=== PATIENT | female | born 1980 | race Caucasian/White ===

== ENCOUNTER 2023-05-29 15:57 | Outpatient (OUT) | payer MEDICAID, SELFPAY ==
--- NOTE | 2023-05-29 15:58 | US_ITS ---
[address] [address] Patient Name: WILLIAM DONOHUE MRN: [facility]:[id number] date: 1980 Sex: F Assigned Patient Location: [facility] Current Patient Location: Accession/Order Number: [id number] Exam Date: 05/29/2023 15:59 Report Date: 05/31/2023 07:43 At the request of: FUNMILAYO VERGARA Procedure: US OB BPP w non-stress PROCEDURE: US OB growth, US OB transvaginal, US OB BPP w non-stress, 05/29/2023 3:59 PM EDT. INDICATIONS: Encounter for third trimester , growth evaluation. Size, date discrepancy. 6 para 5. COMPARISON: None. FINDINGS: EVALUATION Number of Fetuses : 1. Presentation: Cephalic. Heart Rate: 129 bpm. Placenta: Not evaluated. JELLY: 11.5 cm, 5-95th percentile, maximal vertical pocket 4.2 cm. CERVIX LENGTH: 3.3 cm by transvaginal assessment, closed. GESTATIONAL AGE: Provided gestational age: 33 weeks 3 days. Provided HODA: 07/14/2023. Sonographic gestational age: 32 weeks 5 days +/- 2 weeks 2 days. Sonographic HODA: 07/19/2023. BIOMETRY: BPD: 8.5 cm, 34 weeks 2 days, 70 percentile. HC: 30.8 cm, 34 weeks 3 days, 37 percentile. AC: 26.9 cm, 31 weeks 0 days, less than 3 percentile. FL: 6.0 cm, 31 weeks 2 days, 4 percentile. Estimated weight 1813 g +/- 272 g. 6 percentile. Growth ratios: CI: 79.1. FL/BPD: 70.9, normal range 71-87. HC/AC: 1.15, normal range 0.96-1.12. FL/AC: 22.4. FL/HC: 19.5, normal range 19.7-21.4. ANATOMY: Not evaluated. BIOPHYSICAL PROFILE ASSESSMENT: movement: 2/2. tone: 2/2. breathin/2. fluid: 2/2. Total biophysical profile score: 8/8. MATERNAL FINDINGS: No maternal adnexal abnormality. IMPRESSION: 1. Living intrauterine , cephalic presentation. 2. Composite sonographic age 32 weeks 5 days +/- 2 weeks 2 days. 3. Estimated weight 1813 g, 6 percentile, mild asymmetric small for gestational age fetus is favored. Abdominal circumference is less than 3rd percentile, femur length 4 percentile. 4. Normal biophysical profile assessment, total score 8/8. Electronically authenticated by: LAMONT ISLAS Date: 05/31/2023 07:43
--- NOTE | 2023-05-29 15:59 | US_ITS ---
[address] [address] Patient Name: WILLIAM DONOHUE MRN: [facility]:[id number] date: 1980 Sex: F Assigned Patient Location: [facility] Current Patient Location: Accession/Order Number: [id number] Exam Date: 05/29/2023 15:59 Report Date: 05/31/2023 07:43 At the request of: FUNMILAYO VERGARA Procedure: US OB transvaginal PROCEDURE: US OB growth, US OB transvaginal, US OB BPP w non-stress, 05/29/2023 3:59 PM EDT. INDICATIONS: Encounter for third trimester , growth evaluation. Size, date discrepancy. 6 para 5. COMPARISON: None. FINDINGS: EVALUATION Number of Fetuses : 1. Presentation: Cephalic. Heart Rate: 129 bpm. Placenta: Not evaluated. JELLY: 11.5 cm, 5-95th percentile, maximal vertical pocket 4.2 cm. CERVIX LENGTH: 3.3 cm by transvaginal assessment, closed. GESTATIONAL AGE: Provided gestational age: 33 weeks 3 days. Provided HODA: 07/14/2023. Sonographic gestational age: 32 weeks 5 days +/- 2 weeks 2 days. Sonographic HODA: 07/19/2023. BIOMETRY: BPD: 8.5 cm, 34 weeks 2 days, 70 percentile. HC: 30.8 cm, 34 weeks 3 days, 37 percentile. AC: 26.9 cm, 31 weeks 0 days, less than 3 percentile. FL: 6.0 cm, 31 weeks 2 days, 4 percentile. Estimated weight 1813 g +/- 272 g. 6 percentile. Growth ratios: CI: 79.1. FL/BPD: 70.9, normal range 71-87. HC/AC: 1.15, normal range 0.96-1.12. FL/AC: 22.4. FL/HC: 19.5, normal range 19.7-21.4. ANATOMY: Not evaluated. BIOPHYSICAL PROFILE ASSESSMENT: movement: 2/2. tone: 2/2. breathin/2. fluid: 2/2. Total biophysical profile score: 8/8. MATERNAL FINDINGS: No maternal adnexal abnormality. IMPRESSION: 1. Living intrauterine , cephalic presentation. 2. Composite sonographic age 32 weeks 5 days +/- 2 weeks 2 days. 3. Estimated weight 1813 g, 6 percentile, mild asymmetric small for gestational age fetus is favored. Abdominal circumference is less than 3rd percentile, femur length 4 percentile. 4. Normal biophysical profile assessment, total score 8/8. Electronically authenticated by: LAMONT ISLAS Date: 05/31/2023 07:43
--- NOTE | 2023-05-29 15:59 | US_ITS ---
[address] [address] Patient Name: WILLIAM DONOHUE MRN: [facility]:[id number] date: 1980 Sex: F Assigned Patient Location: [facility] Current Patient Location: Accession/Order Number: [id number] Exam Date: 05/29/2023 15:59 Report Date: 05/31/2023 07:43 At the request of: FUNMILAYO VERGARA Procedure: US OB growth PROCEDURE: US OB growth, US OB transvaginal, US OB BPP w non-stress, 05/29/2023 3:59 PM EDT. INDICATIONS: Encounter for third trimester , growth evaluation. Size, date discrepancy. 6 para 5. COMPARISON: None. FINDINGS: EVALUATION Number of Fetuses : 1. Presentation: Cephalic. Heart Rate: 129 bpm. Placenta: Not evaluated. JELLY: 11.5 cm, 5-95th percentile, maximal vertical pocket 4.2 cm. CERVIX LENGTH: 3.3 cm by transvaginal assessment, closed. GESTATIONAL AGE: Provided gestational age: 33 weeks 3 days. Provided HODA: 07/14/2023. Sonographic gestational age: 32 weeks 5 days +/- 2 weeks 2 days. Sonographic HODA: 07/19/2023. BIOMETRY: BPD: 8.5 cm, 34 weeks 2 days, 70 percentile. HC: 30.8 cm, 34 weeks 3 days, 37 percentile. AC: 26.9 cm, 31 weeks 0 days, less than 3 percentile. FL: 6.0 cm, 31 weeks 2 days, 4 percentile. Estimated weight 1813 g +/- 272 g. 6 percentile. Growth ratios: CI: 79.1. FL/BPD: 70.9, normal range 71-87. HC/AC: 1.15, normal range 0.96-1.12. FL/AC: 22.4. FL/HC: 19.5, normal range 19.7-21.4. ANATOMY: Not evaluated. BIOPHYSICAL PROFILE ASSESSMENT: movement: 2/2. tone: 2/2. breathin/2. fluid: 2/2. Total biophysical profile score: 8/8. MATERNAL FINDINGS: No maternal adnexal abnormality. IMPRESSION: 1. Living intrauterine , cephalic presentation. 2. Composite sonographic age 32 weeks 5 days +/- 2 weeks 2 days. 3. Estimated weight 1813 g, 6 percentile, mild asymmetric small for gestational age fetus is favored. Abdominal circumference is less than 3rd percentile, femur length 4 percentile. 4. Normal biophysical profile assessment, total score 8/8. Electronically authenticated by: LAMONT ISLAS Date: 05/31/2023 07:43
[2023-05-29 16:32] VITALS: BP 151/83; PULSE 76
[2023-05-29 16:42] VITALS: BP 115/73; PULSE 73
== END 2023-05-29 16:55 | disposition home or self-care (01) ==
LOC: US 15:57 → FBC 16:04
PROVIDERS: PCP Family Medicine; Visit Provider Obstetrics & Gynecology
DX: O26.843 Uterine size-date discrepancy, third trimester (principal); O09.213 Supervision of pregnancy with history of pre-term labor, third trimester
CPT/HCPCS: 59025; 76816; 76817; 76818

== ENCOUNTER 2023-06-03 15:54 | Outpatient (OUT) | payer MEDICAID, SELFPAY ==
--- NOTE | 2023-06-03 16:00 | US_ITS ---
[address] [address] Patient Name: WILLIAM DONOHUE MRN: [facility]:[id number] date: 1980 Sex: F Assigned Patient Location: [facility] Current Patient Location: [facility] Accession/Order Number: [id number] Exam Date: 06/03/2023 16:01 Report Date: 06/03/2023 16:29 At the request of: FUNMILAYO VERGARA Procedure: US OB BPP w non-stress EXAMINATION: US OB BPP w non-stress HISTORY: THIRD TRIMESTER Z34.93 COMPARISON: Ultrasound biophysical 05/29/2023 TECHNIQUE: Ultrasound biophysical profile was performed in the radiology department. BREATHING MOVEMENTS: 2.0 GROSS BODY MOVEMENTS: 2.0 TONE: 2.0 QUALITATIVE AMNIOTIC FLUID VOLUME: 2.0 PRESENTATION: CEPHALIC HEART RATE: 136.4 bpm bpm. AMNIOTIC FLUID VOLUME: 11.3 cm GESTATIONAL AGE: 34 weeks 1 days CONCLUSION: Total biophysical profile score 8.0. Electronically authenticated by: AGUILAR STEWARD Date: 06/03/2023 16:29
[2023-06-03 16:14] VITALS: BP 117/70; PULSE 65
== END 2023-06-03 16:34 | disposition home or self-care (01) ==
LOC: US 15:55 → FBC 15:57
PROVIDERS: PCP Family Medicine; Visit Provider Obstetrics & Gynecology
DX: O26.843 Uterine size-date discrepancy, third trimester (principal); Z3A.34 34 weeks gestation of pregnancy
CPT/HCPCS: 76818

== ENCOUNTER 2023-06-10 16:08 | Outpatient (OUT) | payer MEDICAID, SELFPAY ==
--- NOTE | 2023-06-10 16:08 | US_ITS ---
[address] [address] Patient Name: WILLIAM DONOHUE MRN: [facility]:[id number] date: 1980 Sex: F Assigned Patient Location: US Current Patient Location: Accession/Order Number: [id number] Exam Date: 06/10/2023 16:10 Report Date: 06/10/2023 18:01 At the request of: FUNMILAYO VERGARA Procedure: US OB BPP w non-stress EXAMINATION: US OB BPP w non-stress HISTORY: Z34.93 THIRD TRIMESTER COMPARISON: No relevant comparison available. TECHNIQUE: Ultrasound biophysical profile was performed in the radiology department. non-reactive stress testing was performed by nursing staff in the birthing center. FINDINGS: BREATHING MOVEMENTS: 2.0 GROSS BODY MOVEMENTS: 2.0 TONE: 2.0 QUALITATIVE AMNIOTIC FLUID VOLUME: 2.0 PRESENTATION: CEPHALIC HEART RATE: 126.8 bpm H.B./min AMNIOTIC FLUID VOLUME: 8.7 cm cm GESTATIONAL AGE: 35 weeks 1 days CONCLUSION: Total biophysical profile score: 8.0 Electronically authenticated by: MIRIAN YIP Date: 06/10/2023 18:01
[2023-06-10 16:48] VITALS: BP 115/73; PULSE 72
== END 2023-06-10 17:12 | disposition home or self-care (01) ==
LOC: US 16:08 → FBC 16:10
PROVIDERS: PCP Family Medicine; Visit Provider Obstetrics & Gynecology
DX: O26.843 Uterine size-date discrepancy, third trimester (principal); Z3A.35 35 weeks gestation of pregnancy
CPT/HCPCS: 76818

== ENCOUNTER 2023-06-13 20:09 | Outpatient (OUT) | payer MEDICAID, SELFPAY ==
[2023-06-13 20:32] VITALS: BP 111/77; PULSE 87; RESP 16; TEMP 36.3
== END 2023-06-13 21:00 | disposition home or self-care (01) ==
LOC: FBCO 20:10 → FBC 20:11
PROVIDERS: PCP Family Medicine; Visit Provider Obstetrics & Gynecology
DX: O26.843 Uterine size-date discrepancy, third trimester (principal)
CPT/HCPCS: 59025

== ENCOUNTER 2023-06-17 18:33 | Outpatient (REF) | payer MEDICAID, SELFPAY | END 2023-06-17 18:34 | disposition home or self-care (01) | LOC: LAB 18:33 | PROVIDERS: PCP Family Medicine; Visit Provider Obstetrics & Gynecology | DX: Z34.93 Encounter for supervision of normal pregnancy, unspecified, third trimester (principal) | CPT/HCPCS: 87081 ==

== ENCOUNTER 2023-06-24 16:50 | Outpatient (OUT) | payer MEDICAID, SELFPAY ==
--- NOTE | 2023-06-24 16:52 | US_ITS ---
[address] [address] Patient Name: WILLIAM DONOHUE MRN: [facility]:[id number] date: 1980 Sex: F Assigned Patient Location: US Current Patient Location: LAB Accession/Order Number: [id number] Exam Date: 06/24/2023 16:55 Report Date: 06/25/2023 18:37 At the request of: FUNMILAYO VERGARA Procedure: US OB BPP w non-stress EXAMINATION: US OB BPP w non-stress HISTORY: SIZE OF FETUS INCONSISTENT WITH DATES O26.843 COMPARISON: Ultrasound OB biophysical 06/10/2023 TECHNIQUE: Ultrasound biophysical profile was performed in the radiology department. BREATHING MOVEMENTS: 2.0 GROSS BODY MOVEMENTS: 2.0 TONE: 2.0 QUALITATIVE AMNIOTIC FLUID VOLUME: 2.0 PRESENTATION: CEPHALIC HEART RATE: 139.9 bpm bpm. AMNIOTIC FLUID VOLUME: 9.3 cm GESTATIONAL AGE: 37 weeks 1 days CONCLUSION: Total biophysical profile score 8.0. Electronically authenticated by: AGUILAR STEWARD Date: 06/25/2023 18:37
--- NOTE | 2023-06-24 16:52 | US_ITS ---
[address] [address] Patient Name: WILLIAM DONOHUE MRN: [facility]:[id number] date: 1980 Sex: F Assigned Patient Location: US Current Patient Location: Accession/Order Number: [id number] Exam Date: 06/24/2023 16:55 Report Date: 06/25/2023 18:40 At the request of: FUNMILAYO VERGARA Procedure: US OB growth EXAMINATION: US OB growth HISTORY: THIRD TRIMESTER Z34.93 ; size inconsistent with dates COMPARISON: Ultrasound OB growth 05/29/2023 FINDINGS: Heart Rate: 139.9 bpm Number: 1.0 Position: CEPHALIC Amniotic Fluid Volume: 9.3 cm Maximum Vertical Pocket: 3.3 cm BIOMETRY: BPD: 8.9 cm cm; 36 weeks 0 days; 33% HC: 32.8 cmcm; 37 weeks 1 days; 26% AC: 31.0 cm cm; 35 weeks 0 days; 10% FL: 6.6 cm cm; 34 weeks 0 days; <3% EFW: 2573.9 grams; 11% FL/AC: 21.3 FL/BPD: 74.3 HC/AC: 1.1 GESTATIONAL AGE: Age by EDC: 37 weeks 1 days HODA by EDC: 07/14/2023 Age by US: 35 weeks 4 days HODA by US: 07/25/2023 US/US OB growth IMPRESSION: 1. Single live intrauterine with growth detailed above. 2. Estimated weight is at 11th percentile; femur length is less than 3rd percentile. Electronically authenticated by: AGUILAR STEWARD Date: 06/25/2023 18:40
[2023-06-24 17:31] VITALS: BP 110/75; PULSE 72
== END 2023-06-24 17:54 | disposition home or self-care (01) ==
LOC: US 16:51 → FBC 17:15
PROVIDERS: PCP Family Medicine; Visit Provider Obstetrics & Gynecology
DX: O26.843 Uterine size-date discrepancy, third trimester (principal); Z3A.35 35 weeks gestation of pregnancy
CPT/HCPCS: 76816; 76818

== ENCOUNTER 2023-07-02 13:15 | Inpatient (IN) | payer MEDICAID, SELFPAY ==
[2023-07-02] VITALS (35 sets, daily range): BP systolic 91–156; BP diastolic 50–90; PULSE 56–126; RESP 16–20; TEMP 36.3–37.1
[2023-07-02 14:10] LABS: Hematocrit 33.6 % (36.0-48.0); Hemoglobin 11.3 g/dL (12.0-16.0); Mean Corpuscular HGB Conc 33.6 g/dL (29.9-35.2); Mean Corpuscular Hemoglobin 30.9 pg (26.7-34.0); Mean Corpuscular Volume 91.8 fL (81.0-99.0); Mean Platelet Volume 12.1 fL (9.5-13.5); Platelet Count 127 10^3/uL (150-450); Red Blood Count 3.66 10^6/uL (4.20-5.40); Red Cell Distribution Width 11.9 % (11.0-15.0)
[2023-07-02 14:22] LABS: Amphetamine Screen Urine NEGATIVE (NEGATIVE); Barbiturates Screen Urine NEGATIVE (NEGATIVE); Benzodiazepines Screen Urine NEGATIVE (NEGATIVE); Buprenorphine Screen Urine POSITIVE (NEGATIVE); Cannabinoid Screen Urine NEGATIVE (NEGATIVE); Cocaine Screen Urine NEGATIVE (NEGATIVE); Methadone Screen Urine NEGATIVE (NEGATIVE); Methamphetamines Screen Urine NEGATIVE (NEGATIVE); Opiate Screen Urine NEGATIVE (NEGATIVE); Oxycodone Screen Urine NEGATIVE (NEGATIVE); Phencyclidine Screen Urine NEGATIVE (NEGATIVE); Tricyclic Antidepressant Urine NEGATIVE (NEGATIVE)
[2023-07-02] MEDS: 0.9 % SODIUM CHLORIDE 1,000 ML 125 ML IV (16:21)
[2023-07-02] MEDS: ROPIVACAINE HCL/PF 400 MG/200 ML PREMIX 10 MG EPIDURAL (16:22)
[2023-07-02] MEDS: OXYTOCIN 10 UNIT in 0.9 % SODIUM CHLORIDE 500 ML 6.012 UNIT IV (17:34)
[2023-07-02] MEDS: 0.9 % SODIUM CHLORIDE 1,000 ML 1000 ML IV (17:35)
--- NOTE | 2023-07-02 19:55 | PM.OBPRCVD ---
Procedure Intrapartal events: None Induction method: none Delivery augmentation: rupture of membranes and pitocin Delivery monitor: external FHT and external uterine Route of delivery: Episiotomy Description: none Laceration description: none Estimated blood loss (mL): 250 Anesthesia type: Epidural Disposition: floor Infant Delivery date: 07/02/23 Gender: male presentation: vertex Placental delivery description: Spontaneous cord description: 3 Vessels and Nuchal Cord
[2023-07-02] MEDS: BUPRENORPHINE HCL 2 MG TAB SUBL 4 MG SL (20:50)
[2023-07-03] VITALS: BP 125/77; PULSE 66
[2023-07-03 00:03] VITALS: RESP 16; TEMP 36.6
[2023-07-03] MEDS: IBUPROFEN 600 MG TABLET PO (06:08)
[2023-07-03 08:20] VITALS: BP 140/89; PULSE 77; RESP 16; TEMP 36.8
[2023-07-03] MEDS: BUPRENORPHINE HCL 2 MG TAB SUBL 4 MG SL (08:33)
[2023-07-03] MEDS: DOCUSATE SODIUM 100 MG CAPSULE PO (08:33)
[2023-07-03 08:58] LABS: Basophils Absolute Auto 0.1 10^3/uL (0.0-0.1); Basophils Percent Auto 0.4 % (0.2-2.0); Eosinophils Absolute Auto 0.1 10^3/uL (0.0-0.7); Eosinophils Percent Auto 0.6 % (0.9-7.0); Hematocrit 32.7 % (36.0-48.0); Hemoglobin 11.1 g/dL (12.0-16.0); Immature Granulocytes Abs Auto 0.05 10^3/uL (0.00-0.03); Immature Granulocytes Pct Auto 0.4 % (0.0-0.5); Lymphocytes Absolute Auto 1.9 10^3/uL (1.2-3.8); Lymphocytes Percent Auto 15.6 % (20.5-60.0); Mean Corpuscular HGB Conc 33.9 g/dL (29.9-35.2); Mean Corpuscular Hemoglobin 30.9 pg (26.7-34.0); Mean Corpuscular Volume 91.1 fL (81.0-99.0); Mean Platelet Volume 11.8 fL (9.5-13.5); Monocytes Absolute Auto 0.8 10^3/uL (0.3-0.8); Monocytes Percent Auto 6.2 % (1.7-12.0); Neutrophils Absolute Auto 9.3 10^3/uL (1.4-6.5); Neutrophils Percent Auto 76.8 % (43.0-75.0); Platelet Count 93 10^3/uL (150-450); Red Blood Count 3.59 10^6/uL (4.20-5.40); White Blood Count 12.1 10^3/uL (4.0-11.0)
--- NOTE | 2023-07-03 09:33 | SWNOTE1 ---
SW consulted due to positive drug screen for Buprenorphine. SW spoke with nursing prior to assessing pt, pt has other children that her sister has custody of. Pt goes to [facility] for subutex. SW met with pt and father of baby, Marcus. Pt and father of baby did express they do have questions. They do have concerns due to prior case that is currently going through court and they have a trial on August 24 to get custody. Their daughter is with pt's sister currently. SW completed assessment with pt and Marcus. Pt does get prescribed subutex from [facility], she is prescribed 8 mg daily, takes 4 in morning and 4 at night. She has an apt next and she is looking into getting the sublicade shot which is given every 28 days. 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 Tellez's office and completes all drug screens and they have all been negative, She has a pillowcase folder at [facility]'s office as well. She also stated she gets a lot of support from the [employer] she goes to, which is [employer]. Pt has 3 other children under the age of 18 who are with her sister. Pt and Marcus have a 2 year old child together and that is who they are working on getting custody back and have court date on August 24. Pt and Marcus voiced they do not want director of casework services Rani Simeon to be involved in this case as she was with their 2 year old and they voiced she tampered with the mouth swab. Pt stated Rani is also friends with her sister who has custody of there 2 year old. Pt also had concerns that her sister will find out about the subutex. SW did let them know SW will be calling CPS to make a report to [facility]. Pt and Marcus did ask about HIPPA laws and what can be revealed to her sister, MEMO advised that SW is not 100% certain, but this case will be a new case and if they do open unsure of what can be shared with her sister. Baby was transferred to [facility] to the NICU due to respiratory distress. Pt and Marcus will be going there today to see baby. Pt is discharged today. They do have everything they need for baby. Pt is attempting to breast feed. Pt voiced good support, especially with gnosticism. SW did advise pt and Marcus that [facility] CPS will be called. They did voice understanding. Pt and Marcus both voiced they do not have any concerns with CPS, just concerned about the old director of casework services and her sister finding out about subutex, and any interference with this child or custody of there 2 year old. Report called to [facility] CPS, HIPPA form filled out. Cord sent out. MEMO also had message from Lashon the group social worker at [facility], to call and update her as well.
--- NOTE | 2023-07-03 10:25 | PM.OBDS ---
DS: Providers Provider Date of admission: 07/02/23 13:15 Primary care physician: Mainor Tellez MD Consults: 07/02/23 Consult to Anesthesiology Routine Consulting Provider: Kamilla Mercado Consult to [employer] Firer/Fireman Routine Reason for consult:: Drug Abuse Attending physician on discharge: Carmen Azul Anticipated date of discharge: 07/03/23 DS: Diagnosis Discharge Diagnosis (1) Normal vaginal delivery: Assessment and plan: DR. HIDALGO DISCHARGED PATIENT TO BE WITH BABY IN [facility] OB - DS: Summary Hospital Course Hospital Course: UNCOMPLICATED, PATIENT WAS ALREADY GONE WHEN I CAME ON DUTY. DR. HIDALGO DISCHARGED. I DID NOT SEE PATIENT PERSONALLY BUT WAS GIVEN REPORT Peripartum Data - Vaginal Delivery Laceration description: none Complications complications: none Infant Delivery method: spontaneous vaginal delivery Gender: male Discharge plan: home Status at Discharge Functional status at discharge: independent ambulation Overall status at discharge: patient is back to baseline Time Spent with Patient Time attestation: Total time spent providing and/or coordinating discharge services: Time spent: less than 30 minutes Specific discharge activities: GIVEN PER DR. HIDALGO Exam Constitutional Vital Signs, click to edit/add: Last Vital Signs Temp 98.2 F 07/03/23 08:20 Pulse 77 07/03/23 08:20 Resp 16 07/03/23 08:20 BP 140/89 07/03/23 08:20 O2 Del Method Room Air 07/02/23 13:47 Documenting provider has reviewed patient's vital signs: yes Common normals: no apparent distress, oriented x3 and no limitations HENMT Common normals: normocephalic and head/scalp atraumatic Eye Pupil: PERRL and accommodation reflex normal Neck & C-Spine Common normals: full ROM and supple Respiratory Common normals: normal respiratory effort Cardio Common normals: regular rate and regular rhythm GI Common normals: Normal to inspection, nondistended, normoactive bowel sounds present Common normals: no CVA tenderness Extremity Common normals: normal to inspection and full ROM Neuro Common normals: CN's II-XII intact bilaterally, moves all extremities, no focal motor deficits and no sensory deficits noted Psych Common normals: mental status grossly normal, thought process normal, cooperative and affect normal DS: Data Data Completed and Pending Labs on day of discharge: Labs from last 24 hours 07/03/23 07/02/23 08:47 13:25 WBC 12.1 H 10.0 RBC 3.59 L 3.66 L Hgb 11.1 L 11.3 L Hct 32.7 L 33.6 L MCV 91.1 91.8 MCH 30.9 30.9 MCHC 33.9 33.6 RDW 12.0 11.9 Plt Count 93 L 127 L MPV 11.8 12.1 Neut % (Auto) 76.8 H Lymph % (Auto) 15.6 L [place] % (Auto) 6.2 Eos % (Auto) 0.6 L Baso % (Auto) 0.4 Neut # (Auto) 9.3 H Lymph # (Auto) 1.9 [place] # (Auto) 0.8 Eos # (Auto) 0.1 Baso # (Auto) 0.1 Abs Immat Gran (auto) 0.05 H Imm/Tot Granulo (auto) 0.4 Urine Opiates Screen Negative Ur Buprenorphine Scrn Positive A Ur Oxycodone Screen Negative Urine Methadone Screen Negative Ur Propoxyphene Screen Negative Ur Barbiturates Screen Negative U Tricyclic Antidepress Negative Ur Phencyclidine Scrn Negative Ur Amphetamines Screen Negative U Methamphetamines Scrn Negative U Benzodiazepines Scrn Negative Urine Cocaine Screen Negative U Cannabinoids Screen Negative Blood Type A Positive Antibody Screen Negative Discharge Plan Discharge Disposition: Home, Self-Care Condition: Good Assessment: BABY WAS TRANSFERRED TO [place] SO DR. HIDALGO DISCHARGE WILLIAM EARLY TODAY TO BE WITH BABY Plan of Treatment: DISCHARGED S/P VAGINAL DELIVERY TO BE WITH BABY AT NICU IN [place] Discharge Medications: Continued buprenorphine HCl 8 mg tablet, sublingual 8 mg sublingual DAILY PNV cmb#95-ferrous fumarate-FA [] 28 mg iron- 800 mcg tablet 1 tab PO DAILY Discontinued ondansetron HCl 8 mg tablet 8 mg PO DAILY Activity: resume usual activities as tolerated Diet: regular diet Patient Instructions: Vaginal Delivery (DC) Forms: Portal Instructions Follow Up Appointments: With Dr. Hidalgo in 6 weeks Discharge location: HOME
--- NOTE | 2023-07-03 10:27 | P.OBPN_ITS ---
OB - PN: Subj Subjective Patient comments: no complaints [place] status: doing well Exam Constitutional Vital Signs, click to edit/add: Last Vital Signs Temp 98.2 F 07/03/23 08:20 Pulse 77 07/03/23 08:20 Resp 16 07/03/23 08:20 BP 140/89 07/03/23 08:20 O2 Del Method Room Air 07/02/23 13:47 Documenting provider has reviewed patient's vital signs: yes Common normals: no apparent distress Respiratory Common normals: clear to auscultation bilaterally Cardio Common normals: regular rate and regular rhythm GI Common normals: Normal to inspection, nondistended, normoactive bowel sounds present Extremity Common normals: no clubbing, cyanosis or edema and no calf tenderness Results Labs Labs: Short CBC 07/02/23 07/03/23 Range/Units 13:25 08:47 WBC 10.0 12.1 H (4.0-11.0) 10^3/uL Hgb 11.3 L 11.1 L (12.0-16.0) g/dL Hct 33.6 L 32.7 L (36.0-48.0) % Plt Count 127 L 93 L (150-450) 10^3/uL OB - PN: A/P Plan - Vaginal Delivery day: 1 Plan: routine care, discharge home and follow up 6 weeks Time Spent with Patient Time: Total time spent is greater than 50% in coordination of care (as documented) at patient's floor/unit and/or counseling patient: Total time spent with greater than 50% in coordination of care (as documented) at patient's floor/unit and/or counseling patient: less than 15 minutes
--- NOTE | 2023-07-03 10:41 | PM.OBHP ---
OB - H&P: HPI History of Present Illness Chief complaint: CONTRACTIONS : 2 Para: 2 Date of last menstrual period: DELIVERED Gestational age based on last menstrual period: TERM Indications for induction: other (NA) History of Present Dating criteria: other (PATIENT SEES OB AT ANOTHER HOSPITAL, HAVE LIMITED RECORDS FROM [facility]) care: good care Ultrasounds: other (DO NOT HAVE DATA) Medical complications OB: none Labs Blood type: 0 (-) negative (WILL BE RECEIVING RHOGAM ON MATERNITY) PFSH [facility] Medical History (Updated 07/03/23 @ 10:26 by Carmen Azul MD) Social History (Updated 07/02/23 @ 13:46 by Claudette Perdue) Non-prescribed substance use: former substance user Meds Home Medications and Allergies Home Medications Medication Instructions Recorded Confirmed Type buprenorphine HCl 8 mg sublingual 8 mg sublingual DAILY 05/29/23 07/02/23 History tablet vit no.95-ferrous 1 tab PO DAILY 05/29/23 07/02/23 History fumarate 28 mg-folic acid 800 mcg tablet () Allergies Allergy/AdvReac Type Severity Reaction Status Date / Time No Known Drug Allergies Allergy Verified 05/29/23 16:33 Exam Constitutional Vital Signs, click to edit/add: Last Vital Signs Temp 98.2 F 07/03/23 08:20 Pulse 77 07/03/23 08:20 Resp 16 07/03/23 08:20 BP 140/89 07/03/23 08:20 O2 Del Method Room Air 07/02/23 13:47 Results Labs Labs: Short CBC 07/02/23 07/03/23 Range/Units 13:25 08:47 WBC 10.0 12.1 H (4.0-11.0) 10^3/uL Hgb 11.3 L 11.1 L (12.0-16.0) g/dL Hct 33.6 L 32.7 L (36.0-48.0) % Plt Count 127 L 93 L (150-450) 10^3/uL OB - A/P Assessment and Plan (1) Normal vaginal delivery:
== END 2023-07-03 09:25 | disposition home or self-care (01) | DRG 560 ==
PROVIDERS: Admitting Provider Obstetrics & Gynecology; PCP Family Medicine; Visit Provider Obstetrics & Gynecology
DX: O80 Encounter for full-term uncomplicated delivery (principal); Z79.891 Long term (current) use of opiate analgesic; Z3A.38 38 weeks gestation of pregnancy; Z37.0 Single live birth
CPT/HCPCS: 36415; 59050; 80307; 85025; 85027; 86850; 86900; 86901; 96374; 96376